=== PATIENT | male | born 1970 | race Caucasian/White ===

== ENCOUNTER 2019-06-27 05:58 | Inpatient (IN) | payer OTHER ==
[2019-06-24 11:35] VITALS: BMI 36.3
[2019-06-27 06:35] LABS: #Basophils 0.1 thou/uL (0.0-0.2); #Eosinphils 0.3 thou/uL (0.0-0.7); #Lymphocytes 2.3 thou/uL (1.20-3.40); #Monocytes 0.6 thou/uL (0.11-0.59); #Neutrophils 2.9 thou/uL (1.40-6.50); %Basophils 1.6 % (0.0-1.0); %Eosinophils 5.3 % (0.0-10.0); %Lymphocytes 37.7 % (21.0-51.0); %Monocytes 9.3 % (0.0-10.0); %Neutrophils 46.1 % (42.0-75.0); Mean Corpuscular HGB CONC 34.5 g/dL (32.0-36.0); Mean Corpuscular Hemoglobin 31.2 pg (27.0-31.0); Mean Corpuscular Volume 90.3 fL (78.0-98.0); Mean Platelet Volume 7.4 fL (7.4-10.4); Platelet Count 222 thou/uL (130-400); RBC Distribution Width 12.3 % (11.5-14.5); Red Blood Cell (RBC) Count 4.81 mill/uL (4.70-6.10); White Blood Cell (WBC) Count 6.2 thou/uL (4.8-10.8)
[2019-06-27] MEDS ORDERED: Sodium Chloride 0.9% 10 ML ONE (06:43)
[2019-06-27] MEDS ORDERED: Bacitracin Zinc Ointment 30 gm TUBE ONE (06:43)
[2019-06-27 06:53] LABS: Anion Gap 12 mmol/L (10-20); BUN (Urea Nitrogen) 15 mg/dL (8.9-20.6); Calc. Creatinine Clearance 133 mL/min (70-130); Carbon Dioxide 24 mmol/L (22-29); Chloride 108 mmol/L (98-107); Estimated GFR-MDRD 83; Glucose 106 mg/dL (70-105); Potassium 4.1 mmol/L (3.5-5.1); Sodium 140 mmol/L (136-145)
[2019-06-27] MEDS ORDERED: Thrombin 5000 UNITS/5 ML VIAL ONE (06:53)
[2019-06-27] MEDS ORDERED: Fentanyl 100 MCG/2 ML VIAL ONE ×3 (07:07→10:38)
[2019-06-27] MEDS ORDERED: Midazolam HCl 2 mg/2 ml Vial ONE (07:07)
[2019-06-27] MEDS ORDERED: Ondansetron PF 4 MG/2 ML Vial ONE (07:34)
[2019-06-27] MEDS ORDERED: Famotidine/PF 20 mg/2ml Vial ONE (07:34)
[2019-06-27] MEDS ORDERED: SUGAMMADEX SODIUM 200 MG/2 ML VIAL ONE (09:22)
[2019-06-27] MEDS ORDERED: Promethazine HCl 25 MG/ML VIAL SLOW IVP PRN (09:50)
[2019-06-27] MEDS ORDERED: Ketorolac Tromethamine 30 MG/ML VIAL IVP PRN (09:50)
[2019-06-27] MEDS ORDERED: Meperidine HCl/PF 25 MG/ML VIAL SLOW IVP PRN (09:50)
[2019-06-27] MEDS ORDERED: Promethazine HCl 25 MG/ML VIAL IM PRN ×2 (09:50→14:39)
[2019-06-27] MEDS ORDERED: Ondansetron HCl/PF 4 MG/2 ML Vial IVP PRN (09:50)
--- NOTE | 2019-06-27 12:03 | OP ---
DATE OF PROCEDURE: 06/27/2019 COIL STRAPPER: Dada Marley PA-C PROCEDURES PERFORMED: Anterior cervical diskectomy, C4 through C7, interbody arthrodesis, intervertebral biomechanical device, local morselized autograft, demineralized bone matrix, anterior titanium instrumentation, C4 to C7. DESCRIPTION OF PROCEDURE: The patient was brought to the operating room and intubated. He was positioned supine with the head in modest extension on gel-filled donut. An incision was made exposing C4 through C7 and the level was confirmed by x-ray. We debrided extensive anterior osteophytes, placed distraction across the disk spaces, and completely debrided the intervertebral disk from foramen to foramen from C4 through C7. Next, the bony endplates were decorticated for the purpose of arthrodesis and appropriate-sized intervertebral biomechanical PEEK device was brought into the field, filled with demineralized bone matrix and local morselized autograft, and tapped in place securely at C4-C5, C5-C6, and C6-C7. Next, an anterior plate was brought into the field and secured to C4, C5, C6, and C7 using two 14-mm screws at each level. The wound was then extensively irrigated and MAC hemostasis was secured and the wound was closed in anatomic layers over drain. Job ID: [id number]
[2019-06-27] MEDS ORDERED: tiZANidine HCl 4 MG TAB ONE (12:35)
[2019-06-27] MEDS ORDERED: tiZANidine HCl 4 MG TAB PO PRN (14:39)
[2019-06-27] MEDS ORDERED: traMADol HCl 50 MG TAB PO PRN ×2 (14:39)
[2019-06-27] MEDS ORDERED: HYDROcodone/Acetaminophen 10/325 mg Tablet PO PRN (14:39)
[2019-06-27] MEDS ORDERED: Promethazine 25 MG TAB PO PRN (14:39)
[2019-06-27] MEDS ORDERED: Promethazine HCl 12.5 MG SUPP PR PRN (14:39)
[2019-06-27] MEDS ORDERED: Morphine 4 MG/ML VIAL SLOW IVP PRN (14:39)
[2019-06-27] MEDS ORDERED: diphenhydrAMINE 25 MG CAP PO PRN (14:39)
[2019-06-27] MEDS ORDERED: Milk Of Magnesia 30 ML UDCUP PO PRN (14:39)
[2019-06-27] MEDS ORDERED: Ondansetron PF 4 MG/2 ML Vial IVP PRN (14:39)
[2019-06-27] MEDS ORDERED: Mag-Al 1200 mg/1200 mg/30 ML UDCUP PO PRN (14:39)
[2019-06-27] MEDS ORDERED: diphenhydrAMINE 50 MG/ML VIAL IVP PRN (14:39)
[2019-06-27] MEDS: Sodium Chloride 0.9% 1,000 ML IV SCH (14:45)
[2019-06-27] MEDS: HYDROcodone/Acetaminophen 10/325 mg Tablet PO PRN (18:27)
[2019-06-27] MEDS: CEFAZOLIN 2 GM in Premix Bag 1 BAG IVPB SCH (22:27)
[2019-06-28] MEDS: HYDROcodone/Acetaminophen 10/325 mg Tablet PO PRN (02:24)
[2019-06-28] MEDS: Sodium Chloride 0.9% 1,000 ML IV SCH (03:14)
[2019-06-28] MEDS: CEFAZOLIN 2 GM in Premix Bag 1 BAG IVPB SCH (05:16)
[2019-06-28] MEDS ORDERED: Losartan 25 MG TAB PO SCH (09:00)
[2019-06-28] MEDS ORDERED: Loratadine 10 MG TAB PO SCH (09:00)
[2019-06-28 09:17] VITALS: BP 138/88; TEMP 98.1
--- NOTE | 2019-06-28 12:09 | DIS ---
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 He underwent C4-C7 ACDF on 02/24/2019. Following the surgery, he was transitioned to the Med/Surg floor, where his pain has been well controlled with p.o. medications, he is tolerating regular diet, and he is voiding appropriately. The patient has been up ambulating easily throughout the hallways. He did have SHALINI drain placed overnight, but this only had 10 mL of output over the first night and was removed on postoperative day #1. The patient was dismissed to home and I have discussed home care precautions. We will follow up with the patient in 2 weeks in the office. Job ID: [id number]
--- NOTE | 2019-06-29 16:39 | EKG ---
Test Reason : PREOP Blood Pressure : / mmHG Vent. Rate : 073 BPM Atrial Rate : 073 BPM P-R Int : 140 ms QRS Dur : 092 ms QT Int : 376 ms P-R-T Axes : 042 053 029 degrees QTc Int : 414 ms Normal sinus rhythm Normal ECG No previous ECGs available Confirmed by DR. Niki GRACE ([id number]) on 06/29/2019 4:39:08 PM Referred By: BENNIE Confirmed By:DR. Niki GRACE
== END 2019-06-28 10:15 | disposition home or self-care (01) | DRG 473 ==
LOC: SURG A 05:58 → EDSTATUS 11:27 → SURG A 14:28
PROVIDERS: ADMIT Neurological Surgery; ATTEND Neurological Surgery
PROC: 0RG20A0 Fusion of 2 or more Cervical Vertebral Joints with Interbody Fusion Device, Anterior Approach, Anterior Column, Open Approach (ICD-10-PCS; principal; 2019-06-27)
PROC: 0RT30ZZ Resection of Cervical Vertebral Disc, Open Approach (ICD-10-PCS; 2019-06-27)
DX: M48.02 Spinal stenosis, cervical region (principal); M47.22 Other spondylosis with radiculopathy, cervical region; M50.120 Mid-cervical disc disorder, unspecified level; E66.9 Obesity, unspecified; Z68.36 Body mass index [BMI] 36.0-36.9, adult
CPT/HCPCS: 36415; 76000; 80048; 85025; 93005; 93010; C1713; C1776; J0131; J0690; J2250; J2405; J3010; J3490; S0028

== ENCOUNTER 2019-07-22 09:50 | Outpatient (CLI) | payer OTHER ==
--- NOTE | 2019-07-22 10:33 | RAD ---
XR Cerv Sp Ap Lat STANDARD History: M [age] cervical radiculopathy Comparison: None. Findings: Open-mouth odontoid view is normal. ACDF hardware incompletely evaluated from C4-C7 without migration of the discectomy cage. Visualized ribs are intact. No acute fracture or malalignment. 2 mm C3 over C4 anterolisthesis due to facet arthropathy. Impression: Satisfactory postoperative appearance.
== END 2019-07-22 09:51 | disposition home or self-care (01) ==
LOC: TBSIIMAG 09:50
PROVIDERS: ATTEND Neurological Surgery
DX: M54.12 Radiculopathy, cervical region (principal); Z98.1 Arthrodesis status
CPT/HCPCS: 72040